=== PATIENT | male | born 1990 | race African-American/Black ===

== ENCOUNTER 2016-12-01 03:30 | Emergency (ER) | payer BC, SELFPAY ==
[2016-12-01] MEDS ORDERED: Acetaminophen/Codeine 30-300mg Tablet ONE (03:51)
[2016-12-01] MEDS ORDERED: Dexamethasone 10 MG/ML VIAL ONE (03:52)
== END 2016-12-01 04:04 | disposition home or self-care (01) ==
LOC: MADERS 03:30
DX: M62.830 Muscle spasm of back (principal); J45.909 Unspecified asthma, uncomplicated; F17.210 Nicotine dependence, cigarettes, uncomplicated
CPT/HCPCS: 96372; J1100

== ENCOUNTER 2017-03-14 08:19 | Emergency (ER) | payer SELFPAY ==
[2017-03-14] MEDS ORDERED: Meclizine HCl 25 MG TAB ONE (09:00)
== END 2017-03-14 09:10 | disposition home or self-care (01) ==
LOC: MADERS 08:19
DX: H83.09 Labyrinthitis, unspecified ear (principal); J45.909 Unspecified asthma, uncomplicated; F17.210 Nicotine dependence, cigarettes, uncomplicated
CPT/HCPCS: 99283

== ENCOUNTER 2017-06-23 18:15 | Emergency (ER) | payer SELFPAY ==
[~2017-06-23 18:15] MED LIST: Sterile Water Irrigation 250 ML BOT ONE
[2017-06-23] MEDS ORDERED: Cephalexin 250 MG CAP ONE (19:00)
[2017-06-23] MEDS ORDERED: Naproxen 500 MG TAB ONE (19:00)
[2017-06-23] MEDS ORDERED: Triple Antibiotic Oint 1 GM Packet ONE (19:01)
== END 2017-06-23 19:08 | disposition home or self-care (01) ==
LOC: MADERS 18:15
DX: S51.012A Laceration without foreign body of left elbow, initial encounter (principal); J45.909 Unspecified asthma, uncomplicated; F17.210 Nicotine dependence, cigarettes, uncomplicated; W22.8XXA Striking against or struck by other objects, initial encounter; Y99.0 Civilian activity done for income or pay
CPT/HCPCS: 12001; J2001

== ENCOUNTER 2017-07-25 06:15 | Emergency (ER) | payer SELFPAY | END 2017-07-25 06:45 | disposition left against medical advice (07) | LOC: MADERS 06:15 | DX: Z53.21 Procedure and treatment not carried out due to patient leaving prior to being seen by health care provider (principal) ==

== ENCOUNTER 2017-10-09 16:40 | Emergency (ER) | payer SELFPAY ==
[2017-10-09] MEDS ORDERED: HYDROcodone/Acetaminophen 10/325 mg Tablet ONE (17:16)
[2017-10-09] MEDS ORDERED: Ibuprofen 800 MG TAB ONE (17:17)
[2017-10-09] MEDS ORDERED: Acetaminophen 500 MG TAB ONE (17:17)
[2017-10-09] MEDS ORDERED: Benzonatate 100 MG CAP ONE (17:17)
[2017-10-09] MEDS ORDERED: Oseltamivir 6 MG/ML ORAL SUSP ONE (17:17)
== END 2017-10-09 17:28 | disposition home or self-care (01) ==
LOC: MADERS 16:40
DX: J11.1 Influenza due to unidentified influenza virus with other respiratory manifestations (principal); F17.210 Nicotine dependence, cigarettes, uncomplicated
CPT/HCPCS: 99283